=== PATIENT | male | born 1955 | race Caucasian/White ===

== ENCOUNTER 2019-06-26 08:41 | Day surgery (SDC) | payer OTHER ==
[2019-06-26 09:14] VITALS: BMI 27.2
[2019-06-26 10:39] VITALS: TEMP 97.8
[2019-06-26 12:00] VITALS: BP 123/64; PULSE 74
--- NOTE | 2019-06-29 18:37 | PATH ---
Surgical Pathology Report Patient Name: BANDAR BENOIT [facility]. Rec. #: [id number] /Age/Gender: 1955 (Age: 63) / M Account: [id number] Location: U-ENDOSCOPY Taken: 06/26/2019 Received: 06/26/2019 Reported: 06/29/2019 Physicians: Davian Crook M.D. Specimen(s) Received A: PROXIMAL TRANSVERSE COLON POLYPS B: RIGHT COLON POLYP C: CECUM POLYP Clinical History History of colon adenomas, family history of colon cancer and diverticulosis Postoperative diagnosis: Diverticulosis, colon polyps, hemorrhoids Final Diagnosis A. PROXIMAL TRANSVERSE COLON, POLYPS, BIOPSY: TUBULAR ADENOMA. HYPERPLASTIC POLYP. B. COLON, RIGHT, POLYPS, POLYPECTOMY: TUBULAR ADENOMA(S). C. CECUM, POLYP, POLYPECTOMY: TUBULAR ADENOMA. Electronically Signed Malgorzata Clifford M.D. Gross Description A. Received in formalin, labeled "proximal transverse colon polyp biopsy" are 3 hitchcock, irregular portions of soft tissue ranging from 0.3-0.5 cm. in greatest dimension. The specimens are submitted in toto in one cassette. B. Received in formalin labeled "right colon polyps," is a 1.0 x 0.7 x 0.2 cm aggregate of hitchcock, irregular to polypoid portions of soft tissue. The formalin is filtered and the specimen is entirely submitted in one cassette. C. Received in formalin, labeled "cecum polyp biopsy" are 3 hitchcock, irregular portions of soft tissue ranging from 0.2-0.7 cm. in greatest dimension. The specimens are submitted in toto in one cassette. 06/26/2019 saudi06/26/2019
== END 2019-06-26 11:15 | disposition home or self-care (01) ==
LOC: JASU-ENDO 08:41
PROVIDERS: ATTEND Internal Medicine Gastroenterology
PROC: 0DBH8ZX Excision of Cecum, Via Natural or Artificial Opening Endoscopic, Diagnostic (ICD-10-PCS; 2019-06-26)
PROC: 0DBL8ZX Excision of Transverse Colon, Via Natural or Artificial Opening Endoscopic, Diagnostic (ICD-10-PCS; 2019-06-26)
PROC: 0DBK8ZX Excision of Ascending Colon, Via Natural or Artificial Opening Endoscopic, Diagnostic (ICD-10-PCS; principal; 2019-06-26 08:45)
DX: Z12.11 Encounter for screening for malignant neoplasm of colon (principal); D12.2 Benign neoplasm of ascending colon; D12.0 Benign neoplasm of cecum; D12.3 Benign neoplasm of transverse colon; K57.30 Diverticulosis of large intestine without perforation or abscess without bleeding; K64.8 Other hemorrhoids
CPT/HCPCS: 10005; 82962; 88305-TC

== ENCOUNTER 2022-09-03 04:26 | Day surgery (SDC) | payer OTHER ==
[2022-09-03] MEDS ORDERED: SUCCINYLCHOLINE CHLORIDE 200 MG/10 ML SYRINGE ONE (06:53)
[2022-09-03 07:42] VITALS: BMI 25.7
[2022-09-03 08:42] VITALS: TEMP 97.7
[2022-09-03 09:16] VITALS: RESP 15
[2022-09-03 09:19] VITALS: BP 107/60; PULSE 68
== END 2022-09-03 09:25 | disposition home or self-care (01) ==
LOC: JASU-ENDO 04:26
PROVIDERS: ATTEND Internal Medicine Gastroenterology
PROC: 0DBL8ZX Excision of Transverse Colon, Via Natural or Artificial Opening Endoscopic, Diagnostic (ICD-10-PCS; 2022-09-03)
PROC: 0DBC8ZX Excision of Ileocecal Valve, Via Natural or Artificial Opening Endoscopic, Diagnostic (ICD-10-PCS; principal; 2022-09-03 08:00)
DX: Z12.11 Encounter for screening for malignant neoplasm of colon (principal); D12.3 Benign neoplasm of transverse colon; K64.8 Other hemorrhoids; K57.30 Diverticulosis of large intestine without perforation or abscess without bleeding; Z86.010 Personal history of colon polyps
CPT/HCPCS: 82962; 88305-TC